=== PATIENT | female | born 1990 | race Caucasian/White ===

== ENCOUNTER 2018-05-21 21:45 | Emergency (ER) | payer MEDICAID ==
[~2018-05-21] VITALS: Ht 144.8 cm; Wt 83.5 kg
[2018-05-21 21:48] VITALS: BP 100/60
--- NOTE | 2018-05-21 21:54 | NUR ---
PT AMBULATED TO BED 4 WITH VSS.
--- NOTE | 2018-05-21 22:10 | NUR ---
27/F CAME IN ED WITH FAMILY/FRIEND, C/O ABNORMAL VAGINAL BLEEDING, INCREASING FOR 5 DAYS. PT REPORTS HAVING A "BLOODY SAC" IN THE BATHROOM YESTERDAY. PT UNAWARE IF SHE IS , A0. PT REPORTS 8/10 SUPRAPUBIC PAIN, RADIATING TO LOWER BACK, X5 DAYS. PT REPORTS DIZZINESS, SLIGHT NAUSEA. DENIES CP, SOB, V/D, DYSURIA. LUNG SOUND CLEAR BL. LBM YESTERDAY, PT STATES SHE FEELS CONSTIPATED, ABD SOFT ROUND NONTENDER, BS ACTIVE X4. ER MD MADE AWARE.
[2018-05-21] MEDS ORDERED: KETOROLAC 30 MG/ML VIAL IM ONE (23:15)
[2018-05-22 00:15] LABS: BASOPHILS % (AUTO) 0.3 % (0.0-2.0); EOSINOPHILS # (AUTO) 0.1 K/uL (0-0.4); EOSINOPHILS % (AUTO) 1.4 % (0.0-4.0); HEMATOCRIT 27.7 % (36-48); HEMOGLOBIN 8.5 g/dL (12.0-16.0); LYMPHOCYTES # (AUTO) 1.8 K/uL (2.5-16.5); LYMPHOCYTES % (AUTO) 28.9 % (20.5-51.1); MEAN CORPUSCULAR HEMOGLOBIN 22 pg (27-31); MEAN CORPUSCULAR HGB CONC 31 g/dL (33-37); MEAN CORPUSCULAR VOLUME 70.4 fL (80-94); MONOCYTES # (AUTO) 0.4 K/uL (0.8-1.0); MONOCYTES % (AUTO) 6.2 % (1.7-9.3); NEUTROPHILS % (AUTO) 63.2 % (42.2-75.2); PLATELET COUNT (AUTO) 374 K/uL (140-450); RED BLOOD CELL COUNT(AUTO) 3.94 MIL/uL (4.20-5.40); WHITE BLOOD COUNT (AUTO) 6.3 K/uL (4.8-10.8)
[2018-05-22 00:23] LABS: APPEARANCE,URINE SL CLOUDY (CLEAR); BILIRUBIN,URINE NEGATIVE (NEGATIVE); BLOOD, URINE 3+ (NEGATIVE); COLOR,URINE YELLOW (YELLOW); LEUKOCYTE ESTERASE ,URINE NEGATIVE (NEGATIVE); NITRITE, URINE NEGATIVE (NEGATIVE); PH,URINE 6.5 (5.0-9.0); UGLUCOSE NEGATIVE (NEGATIVE)
[2018-05-22 01:08] LABS: RBC,URINE TOO NUMEROUS TO COUN /HPF (0-5); WBC,URINE 0-5 (RARE) /HPF (0-5)
[2018-05-22 02:02] VITALS: BP 100/60
--- NOTE | 2018-05-22 02:02 | NUR ---
Patient discharged with v/s stable. Written and verbal after care instructions given and explained. Patient alert, oriented and verbalized understanding of instructions. Ambulatory with steady gait. All questions addressed prior to discharge. ID band removed. Patient advised to follow up with PMD. Rx of PEPCID, TRAMADOL, REGLAN given. Patient educated on indication of medication including possible reaction and side effects. Opportunity to ask questions provided and answered.
== END 2018-05-22 02:02 | disposition home or self-care (01) ==
LOC: MED 21:45
DX: N94.6 Dysmenorrhea, unspecified (principal); D50.9 Iron deficiency anemia, unspecified
CPT/HCPCS: 36415; 76830; 81001; 81025; 83540; 85025; 86900; 86901; 96372; 99285; J1885

== ENCOUNTER 2018-09-23 05:45 | Emergency (ER) | payer SELFPAY ==
[~2018-09-23] VITALS: Ht 144.8 cm; Wt 86.2 kg
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
--- NOTE | 2018-09-23 05:45 | NUR ---
PT BIBA ALS, TAKEN TO BED 10
[2018-09-23 05:48] VITALS: BP 111/62
--- NOTE | 2018-09-23 05:48 | NUR ---
Dr. Xiong evaluating patient at bedside.
[2018-09-23] MEDS ORDERED: KETOROLAC 30 MG/ML VIAL IM ONE (06:25)
[2018-09-23] MEDS ORDERED: BACITRACIN OINT 500 UNITS/GM PKT TP ONE (06:25)
--- NOTE | 2018-09-23 06:35 | NUR ---
PT WOUND ON ELBOW IRRIGATED WITH NORMAL SALINE.
--- NOTE | 2018-09-23 06:36 | NUR ---
ASSISTED PT WITH REMOVING SHARDS OF GLASS FROM PERSON
[2018-09-23] MEDS ORDERED: KETOROLAC 60 MG/2 ML VIAL IM ONE (06:59)
--- NOTE | 2018-09-23 07:10 | NUR ---
PT TO RADIOLOGY VIA [facility]
[2018-09-23 09:15] VITALS: BP 95/51
== END 2018-09-23 09:09 | disposition home or self-care (01) ==
LOC: MED 05:45
DX: S13.4XXA Sprain of ligaments of cervical spine, initial encounter (principal); S43.402A Unspecified sprain of left shoulder joint, initial encounter; V89.2XXA Person injured in unspecified motor-vehicle accident, traffic, initial encounter; Y93.89 Activity, other specified; Y92.89 Other specified places as the place of occurrence of the external cause; Y99.8 Other external cause status
CPT/HCPCS: 70450; 72125; 73080; 90471; 90715; 96372; 99284; J1885; Q0092; 81002; 81025